=== PATIENT | male | born 1945 | race Caucasian/White ===

== ENCOUNTER 2019-11-10 11:24 | Emergency (ER) | payer MEDICARE, BC ==
[2019-11-10] MEDS ORDERED: Sodium Chloride 0.9% 2.5 ML Syringe FLUSH PRN ×2 (11:45→11:57)
[2019-11-10] MEDS ORDERED: Sodium Chloride 0.9% 10 ML Syringe FLUSH PRN ×2 (11:45→11:57)
--- NOTE | 2019-11-10 11:47 | EDM.PDOC ---
ED HPI GENERAL MEDICAL PROBLEM - General Chief Complaint: Neuro Symptoms/Deficits Stated Complaint: DIZZY Time Seen by Provider: 11/10/19 11:47 Source of Information: Reports: Patient History Limitations: Reports: No Limitations - History of Present Illness INITIAL COMMENTS - FREE TEXT/NARRATIVE: HISTORY AND PHYSICAL: History of present illness: Patient is a 74-year-old male who presents to the emergency room with complaints of dizziness after a syncopal event. He states he was in the garage around 8 AM this morning when he bent over to grab something off the ground and stood up to shot the garage door, he had a syncopal event resulting in hitting his right upper brow/right elbow and right fifth digit. He is unsure how long he had passed out. When he woke up on the ground he states he yelled out for his to help, they drove to [place] from [facility]. He states he has not eaten any breakfast yet today but prior to his syncopal event had felt well and had no health complaints or concerns. After the syncopal event he has some facial pain, right elbow pain and fifth digit pain where he has abrasions. He also complains of feeling unsteady on his feet and dizzy when he has to ambulate or he turns his head quickly. He does have a past medical history of coronary artery bypass with open heart surgery. Patient denies any fever, chills, headache, change in vision, syncope or near syncope. Denies any chest pain, back pain, shortness of breath or cough. Denies any abdominal pain, nausea, vomiting, diarrhea, constipation or dysuria. Has not noted any blood in urine or stool. Patient has been eating and drinking appropriately. Review of systems: As per history of present illness and below otherwise all systems reviewed and negative. Past medical history: As per history of present illness and as reviewed below otherwise noncontributory. Surgical history: As per history of present illness and as reviewed below otherwise noncontributo ry. Social history: See social history for further information Family history: As per history of present illness and as reviewed below otherwise noncontributory. Physical exam: General: Well-developed and well-nourished 74-year-old male. Alert and oriented. Nontoxic-appearing and in no acute distress. HEENT: Bruising and tenderness to left eyebrow, normocephalic, pupils equal and reactive bilaterally, negative for conjunctival pallor or scleral icterus, mucous membranes moist, TMs normal bilaterally, throat clear, neck supple, nontender, trachea midline. No drooling or trismus noted. No meningeal signs. No hot potato voice noted. Lungs: Clear to auscultation, breath sounds equal bilaterally, chest nontender. Heart: S1S2, bradycardic rate and rhythm without overt murmur Abdomen: Soft, nondistended, nontender. Negative for masses or hepatosplenomegaly. Negative for costovertebral tenderness. Pelvis: Stable nontender. C-spine/Back: No pinpoint vertebral tenderness upon palpation. No crepitus, step-offs or obvious deformities. Patient is ambulatory into the emergency room without difficulty or deficit. Able to rock back on heels and walk on toes. Denies any urinary or fecal incontinence. Denies any numbness, tingling or saddle paresthesia. No concerns of serious infection, fracture or cord compression, or cauda equina syndrome. Deep tendon reflexes brisk bilaterally. Skin: Abrasion and early bruising above the right eyebrow. Skin tear to right elbow. Abrasion to distal right fifth digit. Otherwise skin is intact, warm, dry. No lesions or rashes noted. Hematologic: No petechiae or purpra. Mucosa appropriate color and normal nail bed color and refill. Extremities: Moves all extremities per self without difficulty or deficits, negative for cords or calf pain. Patient elevation of the right elbow (see SKIN for details). Pain with palpation of the MIP fifth digit. Neurovascular unremarkable. Neuro: Awake, alert, oriented. Cranial nerves II through XII unremarkable. Cerebellum unremarkable. Motor and sensory unremarkable throughout. Exam nonfocal. Notes: 10/2019: Last month the patient had a nuclear stress test with Dr. 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 Left ventricular cavity is mildly enlarged. Borderline ejection fraction is noted. No definite findings of reversible ischemia. EKG shows a third-degree heart block with a rate of 35. At bedside his pulse will range from 25-40 bpm. At this time I involved Dr Miles in this case, he has also evaluated patient. Spoke with patient's , Inga about patient's need for transfer. We did speak with Dr. Isauro Oreilly at [facility] in [place], currently there acute beds are full. [facility], Dr Valero, development intern has accepted this patient. Dr Pearson, ED physician was made aware as well. Patient remains stable. Dopamine drip started and titrated. Lab work is unremarkable. Patient remains stable and asymptomatic. Awaiting flight crew for transfer. Diagnostics: CBC, CMP, UA, troponin, EKG, INR, BNP, 1 view chest, head CT, right elbow x-ray, right fifth digit x-ray Therapeutics: environmental monitoring technician, SL x 2, Dopamine drip Impression: Syncope Third degree heart block Plan: Transfer to [facility] via flight crew Definitive disposition and diagnosis as appropriate pending reevaluation and review of above. Onset: Today R elbow Pain Score (Numeric/FACES): 6 - Related Data Allergies Allergy/AdvReac Type Severity Reaction Status Date / Time No Known Allergies Allergy Verified 11/10/19 12:04 Home Meds: Home Meds Aspirin [Adult Low Dose Aspirin EC] 81 mg PO DAILY 08/25/16 [History] Ezetimibe [Zetia] 10 mg PO DAILY 08/25/16 [History] Fish Oil/[place]-3 Fatty Acids [Fish Oil 1,000 MG] 1 gm PO BID 08/25/16 [History] Glucosam/Chondr/Collagn/Hyalur [Glucosamine & Chondroitin Cap] 1 cap PO DAILY 08/25/16 [History] Metoprolol Tartrate 50 mg PO BEDTIME 08/25/16 [History] Nitroglycerin 0.4 mg PO ASDIRECTED PRN MDD 3 tabs 08/25/16 [History] Rosuvastatin Calcium 40 mg PO DAILY 08/25/16 [History] Past Medical History Other HEENT History: wears glasses Cardiovascular History: Reports: CAD, High Cholesterol, Hypertension, NM Respiratory History: Reports: None Gastrointestinal History: Reports: GERD Genitourinary History: Reports: Renal Calculus Musculoskeletal History: Reports: Fracture Other Musculoskeletal History: hx of fx left thumb Neurological History: Reports: None Psychiatric History: Reports: None Endocrine/Metabolic History: Reports: None Hematologic History: Reports: None Immunologic History: Reports: None Oncologic (Cancer) History: Reports: Basal Cell Carcinoma Other Oncologic History: left shoulder and back Dermatologic History: Reports: Other (See Below) Other Dermatologic History: multiple basal cell and pre-cancerous lesions removed - Past Surgical History Head Surgeries/Procedures: Reports: None HEENT Surgical History: Reports: None Cardiovascular Surgical History: Reports: Coronary Artery Bypass, Coronary Artery Stent Other Cardiovascular Surgeries/Procedures: hx of CABG with 6 vessels, hx of Angioplasty with 2 stents, denies current chest pain and SOB Respiratory Surgical History: Reports: None GI Surgical History: Reports: Appendectomy Male Surgical History: Reports: None Endocrine Surgical History: Reports: None Neurological Surgical History: Reports: None Musculoskeletal Surgical History: Reports: ORIF, Other (See Below) Other Musculoskeletal Surgeries/Procedures:: ORIF left thumb, Left Achillies Tendon repair Oncologic Surgical History: Reports: None Dermatological Surgical History: Reports: Skin Biopsy Social & Family History - Caffeine Use Caffeine Use: Reports: None ED ROS GENERAL - Review of Systems Review Of Systems: Comprehensive ROS is negative, except as noted in HPI. ED EXAM, NEURO - Physical Exam Exam: See Below (See dictation) Course - Vital Signs Last Recorded V/S: Last Vital Signs Temp 96.8 F L 11/10/19 12:25 Pulse 40 L 11/10/19 12:25 Resp 20 11/10/19 12:25 BP 142/47 H 11/10/19 12:25 Pulse Ox 97 11/10/19 12:25 Orthostatic Blood Pressure [ 167/66 Standing] Orthostatic Blood Pressure [ 172/73 Sitting] Orthostatic Blood Pressure [ 189/57 Supine] - Orders/Labs/Meds Orders: Active Orders 24 hr Category Date Time Status Cardiac Monitoring [RC] . DIRECTED Care 11/10/19 11:45 Active Communication Order [RC] STAT Care 11/10/19 11:57 Active EKG Documentation Completion [RC] STAT Care 11/10/19 11:44 Active Orthostatic Vital Signs [RC] ASDIRECTED Care 11/10/19 11:44 Active Chest 1V Frontal [CR] Stat Exams 11/10/19 11:44 Taken Elbow Min 3V Rt [CR] Stat Exams 11/10/19 11:44 Taken B-TYPE NATRIURETIC PEPTIDE,BNP [CHEM] Stat Lab 11/10/19 11:57 Received CORONAVIRUS COVID-19 RAPID [MOLEC] Stat Lab 11/10/19 12:48 Received DOPamine/Dextrose 5%-Water [DOPamine in D5W 400 MG/250 Med 11/10/19 12:00 Active ML] 400 mg in 250 ml IV TITRATE Sodium Chloride 0.9% [Saline Flush] Med 11/10/19 11:45 Active 10 ml FLUSH ASDIRECTED PRN Sodium Chloride 0.9% [Saline Flush] Med 11/10/19 11:57 Active 10 ml FLUSH ASDIRECTED PRN Sodium Chloride 0.9% [Saline Flush] Med 11/10/19 11:45 Active 2.5 ml FLUSH ASDIRECTED PRN Sodium Chloride 0.9% [Saline Flush] Med 11/10/19 11:57 Active 2.5 ml FLUSH ASDIRECTED PRN Saline Lock Insert [OM.PC] Stat Oth 11/10/19 11:45 Ordered Saline Lock Insert [OM.PC] Stat Ot 11/10/19 11:57 Ordered Medication Orders Dopamine HCl/Dextrose (Dopamine In D5w 400 Mg/250 Ml) 400 mg in 250 mls @ 16.159 mls/hr IV TITRATE LUCIO; Protocol Last Titration: 11/10/19 12:38 Dose: 10 mcg/kg/min, 32.319 mls/hr Documented by: Admin: 11/10/19 12:10 Dose: 5 mcg/kg/min, 16.159 mls/hr Documented by: SUDHIR Sodium Chloride (Saline Flush) 10 ml FLUSH ASDIRECTED PRN PRN Reason: Keep Vein Open Sodium Chloride (Saline Flush) 2.5 ml FLUSH ASDIRECTED PRN PRN Reason: Keep Vein Open Sodium Chloride (Saline Flush) 10 ml FLUSH ASDIRECTED PRN PRN Reason: Keep Vein Open Sodium Chloride (Saline Flush) 2.5 ml FLUSH ASDIRECTED PRN PRN Reason: Keep Vein Open Labs: Laboratory Tests 11/10/19 11/10/19 11/10/19 Range/Units 11:43 11:57 11:57 WBC 6.99 (4.0-11.0) K/uL RBC 5.61 (4.50-5.90) M/uL Hgb 16.8 (13.0-17.0) g/dL Hct 49.9 (38.0-50.0) % MCV 88.9 (80.0-98.0) fL MCH 29.9 (27.0-32.0) pg MCHC 33.7 (31.0-37.0) g/dL RDW Std Deviation 46.3 (28.0-62.0) fl RDW Coeff of Semaj 14 (11.0-15.0) % Plt Count 101 L (150-400) K/uL MPV 10.60 (7.40-12.00) fL Neut % (Auto) 73.0 (48.0-80.0) % Lymph % (Auto) 18.0 (16.0-40.0) % [place] % (Auto) 7.2 (0.0-15.0) % Eos % (Auto) 1.7 (0.0-7.0) % Baso % (Auto) 0.1 (0.0-1.5) % Neut # (Auto) 5.1 (1.4-5.7) K/uL Lymph # (Auto) 1.3 (0.6-2.4) K/uL [place] # (Auto) 0.5 (0.0-0.8) K/uL Eos # (Auto) 0.1 (0.0-0.7) K/uL Baso # (Auto) 0.0 (0.0-0.1) K/uL Nucleated RBC % 0.0 /100WBC Nucleated RBCs # 0 K/uL INR Sodium 139 (136-148) mmol/L Potassium 4.9 (3.5-5.1) mmol/L Chloride 107 (98-107) mmol/L Carbon Dioxide 27.0 (21.0-32.0) mmol/L BUN 16 (7.0-18.0) mg/dL Creatinine 1.2 (0.8-1.3) mg/dL Est Cr Clr Drug Dosing 59.26 mL/min Estimated GFR (MDRD) 59.5 ml/min Glucose 128 H (74-106) mg/dL POC Glucose 109 (60-110) mg/dL Calcium 9.7 (8.5-10.1) mg/dL Total Bilirubin 1.6 H (0.2-1.0) mg/dL AST 27 (15-37) IU/L ALT 41 (14-63) IU/L Alkaline Phosphatase 62 (46-116) U/L Troponin I < 0.050 (0.000-0.056) ng/mL Total Protein 7.0 (6.4-8.2) g/dL Albumin 4.0 (3.4-5.0) g/dL Globulin 3.0 (2.6-4.0) g/dL Albumin/Globulin Ratio 1.3 (0.9-1.6) Urine Color Urine Appearance Urine pH (5.0-8.0) Ur Specific [place] (1.001-1.035) Urine Protein (NEGATIVE) mg/dL Urine Glucose (UA) (NEGATIVE) mg/dL Urine Ketones (NEGATIVE) mg/dL Urine Occult Blood (NEGATIVE) Urine Nitrite (NEGATIVE) Urine Bilirubin (NEGATIVE) Urine Urobilinogen (<2.0) EU/dL Ur Leukocyte Esterase (NEGATIVE) 11/10/19 11/10/19 Range/Units 11:57 12:05 WBC (4.0-11.0) K/uL RBC (4.50-5.90) M/uL Hgb (13.0-17.0) g/dL Hct (38.0-50.0) % MCV (80.0-98.0) fL MCH (27.0-32.0) pg MCHC (31.0-37.0) g/dL RDW Std Deviation (28.0-62.0) fl RDW Coeff of Semaj (11.0-15.0) % Plt Count (150-400) K/uL MPV (7.40-12.00) fL Neut % (Auto) (48.0-80.0) % Lymph % (Auto) (16.0-40.0) % [place] % (Auto) (0.0-15.0) % Eos % (Auto) (0.0-7.0) % Baso % (Auto) (0.0-1.5) % Neut # (Auto) (1.4-5.7) K/uL Lymph # (Auto) (0.6-2.4) K/uL [place] # (Auto) (0.0-0.8) K/uL Eos # (Auto) (0.0-0.7) K/uL Baso # (Auto) (0.0-0.1) K/uL Nucleated RBC % /100WBC Nucleated RBCs # K/uL INR 1.03 Sodium (136-148) mmol/L Potassium (3.5-5.1) mmol/L Chloride (98-107) mmol/L Carbon Dioxide (21.0-32.0) mmol/L BUN (7.0-18.0) mg/dL Creatinine (0.8-1.3) mg/dL Est Cr Clr Drug Dosing mL/min Estimated GFR (MDRD) ml/min Glucose (74-106) mg/dL POC Glucose (60-110) mg/dL Calcium (8.5-10.1) mg/dL Total Bilirubin (0.2-1.0) mg/dL AST (15-37) IU/L ALT (14-63) IU/L Alkaline Phosphatase (46-116) U/L Troponin I (0.000-0.056) ng/mL Total Protein (6.4-8.2) g/dL Albumin (3.4-5.0) g/dL Globulin (2.6-4.0) g/dL Albumin/Globulin Ratio (0.9-1.6) Urine Color YELLOW Urine Appearance CLEAR Urine pH 6.0 (5.0-8.0) Ur Specific [place] 1.020 (1.001-1.035) Urine Protein NEGATIVE (NEGATIVE) mg/dL Urine Glucose (UA) NEGATIVE (NEGATIVE) mg/dL Urine Ketones NEGATIVE (NEGATIVE) mg/dL Urine Occult Blood NEGATIVE (NEGATIVE) Urine Nitrite NEGATIVE (NEGATIVE) Urine Bilirubin NEGATIVE (NEGATIVE) Urine Urobilinogen 0.2 (<2.0) EU/dL Ur Leukocyte Esterase NEGATIVE (NEGATIVE) Meds: Medications Generic Name Dose Route Start Last Admin Trade Name Freq PRN Reason Stop Dose Admin Dopamine HCl/Dextrose 400 mg in 250 mls @ 16.159 mls/hr 11/10/19 12:00 11/10/19 12:38 Dopamine In D5w 400 Mg/250 Ml IV 10 mcg/kg/min TITRATE LUCIO 32.319 mls/hr Titration Protocol 5 MCG/KG/MIN Sodium Chloride 10 ml 11/10/19 11:45 Saline Flush FLUSH ASDIRECTED PRN Keep Vein Open Sodium Chloride 2.5 ml 11/10/19 11:45 Saline Flush FLUSH ASDIRECTED PRN Keep Vein Open Sodium Chloride 10 ml 11/10/19 11:57 Saline Flush FLUSH ASDIRECTED PRN Keep Vein Open Sodium Chloride 2.5 ml 11/10/19 11:57 Saline Flush FLUSH ASDIRECTED PRN Keep Vein Open Discontinued Medications Generic Name Dose Route Start Last Admin Trade Name Yovanny PRN Reason Stop Dose Admin Dopamine HCl/Dextrose Confirm 11/10/19 12:05 11/10/19 12:16 Dopamine In D5w 400 Mg/250 Ml Administered 11/10/19 12:06 Not Given Dose 400 mg in 250 mls @ as directed .ROUTE .STK-MED ONE Departure - Departure Time of Disposition: 12:46 Disposition: DC/Tfer to Acute Hospital 02 Clinical Impression: Third degree heart block Syncope Qualifiers: Syncope type: unspecified Qualified Code(s): R55 - Syncope and collapse - Discharge Information Referrals: PCP,None [Primary Care Provider] - Forms: ED Department Discharge Sepsis Event Note (ED) - Focused Exam Vital Signs: Vital Signs Temp Pulse Resp BP Pulse Ox 11/10/19 12:25 96.8 F L 40 L 20 142/47 H 97 11/10/19 11:44 96.3 F L 36 L 20 177/63 H 98 - My Orders Last 24 Hours: My Active Orders 11/10/19 11:44 EKG Documentation Completion [RC] STAT Orthostatic Vital Signs [RC] ASDIRECTED Chest 1V Frontal [CR] Stat Elbow Min 3V Rt [CR] Stat 11/10/19 11:45 Cardiac Monitoring [RC] . DIRECTED Sodium Chloride 0.9% [Saline Flush] 10 ml FLUSH ASDIRECTED PRN Sodium Chloride 0.9% [Saline Flush] 2.5 ml FLUSH ASDIRECTED PRN Saline Lock Insert [OM.PC] Stat 11/10/19 11:57 Communication Order [RC] STAT Sodium Chloride 0.9% [Saline Flush] 10 ml FLUSH ASDIRECTED PRN Sodium Chloride 0.9% [Saline Flush] 2.5 ml FLUSH ASDIRECTED PRN Saline Lock Insert [OM.PC] Stat 11/10/19 12:00 DOPamine/Dextrose 5%-Water [DOPamine in D5W 400 MG/250 ML] 400 mg in 250 ml IV TITRATE 11/10/19 12:48 CORONAVIRUS COVID-19 RAPID [MOLEC] Stat - Assessment/Plan Last 24 Hours: My Active Orders 11/10/19 11:44 EKG Documentation Completion [RC] STAT Orthostatic Vital Signs [RC] ASDIRECTED Chest 1V Frontal [CR] Stat Elbow Min 3V Rt [CR] Stat 11/10/19 11:45 Cardiac Monitoring [RC] . DIRECTED Sodium Chloride 0.9% [Saline Flush] 10 ml FLUSH ASDIRECTED PRN Sodium Chloride 0.9% [Saline Flush] 2.5 ml FLUSH ASDIRECTED PRN Saline Lock Insert [OM.PC] Stat 11/10/19 11:57 Communication Order [RC] STAT Sodium Chloride 0.9% [Saline Flush] 10 ml FLUSH ASDIRECTED PRN Sodium Chloride 0.9% [Saline Flush] 2.5 ml FLUSH ASDIRECTED PRN Saline Lock Insert [OM.PC] Stat 11/10/19 12:00 DOPamine/Dextrose 5%-Water [DOPamine in D5W 400 MG/250 ML] 400 mg in 250 ml IV TITRATE 11/10/19 12:48 CORONAVIRUS COVID-19 RAPID [MOLEC] Stat
[2019-11-10] MEDS ORDERED: DOPamine/Dextrose 5%-Water 400 MG/250 ML BAG IV SCH (12:00)
[2019-11-10] MEDS ORDERED: DOPamine/Dextrose 5%-Water 400 MG/250 ML BAG ONE (12:05)
--- NOTE | 2019-11-10 12:05 | PCM.SN.2 ---
- Free Text/Narrative Note: Patient was presented to be by the mid-level provider, who sees patients independently as a licensed independent practitioner by [facility] and [facility] law. Up until the point that my assistance was requested, the mid-level provider has been solely, exclusively, and independently caring for this patient and they are responsible for all aspects of care including performing the history and physical, formulating medical decision making, administering medications, and ordering and evaluating testing. I have personally and independently seen and evaluated the patient at bedside and, if available, have spoken with the with the family. I agree with the history, physical, medical decision making, and plan of treatment as documented by the mid-level provider. I have performed the medical decision making for this patient, including assessing the results of all diagnostic testing and I have instructed the mid-level provider to document the results and carry through with the treatment plan that I deemed appropriate. The final completed note is the responsibility of the mid-level provider. If needed, any other comments, a focused physical examination, or my own medical decision making are documented below. In brief, 74-year-old male with a past medical history of CAD status post CABG x6, hyperlipidemia presenting with syncope. Noted to be markedly bradycardic and in third-degree AV block on arrival. Hypertensive with blood pressure 170 systolic, extremities warm and well-perfused, no chest pain or shortness of breath so does not meet inclusion criteria for transcutaneous pacing at this moment. IV access established and labs were sent. Twelve-lead EKG shows no acute ischemia. Given full dose aspirin and started on a dopamine infusion. Therapy pads were placed. Labs reassuring, troponin negative, electrolytes reassuring, normal cell lines. Patient will need to be emergently transferred for emergent pacemaker placement. We initially contacted [facility] in [place], who has no capacity to admit the patient. We were able to secure admission at [facility] in [place]. I spoke with the cap machine operator Dr. Valero and the emergency physician Dr. Vaughn who agreed to accept the transfer. We will plan to transfer by fixed wing aircraft. Patient remained in stable condition and did not require any transcutaneous pacing although we did slightly up titrate the dopamine infusion rate. He was transferred to the aeromedical crew in good condition. Critical care time is exclusive of billable procedures and the time to perform these procedures. Critical care time was used to prevent vital system organ failure and deterioration. Critical care time includes bedside management and high-complexity decision making requiring my highest level of mental preparedness and attention. This includes reviewing the patient's chart and prior medical records, ordering and reviewing interpreting laboratory studies and imaging results, interpretation of vital signs and EKG, pulse oximetry, and discussion with the admitting team along with EMS and nursing staff. 30 minutes of critical care. Third-degree AV block requiring IV vasopressor infusion after syncope. Emergent transfer to Campaign [facility] for emergent pacemaker placement. Transfer by aeromedical crew. Required serial evaluations of heart rate, blood pressure, and hemodynamics. Discussions with patient, family, and admitting emergency physician and cap machine operator.
[2019-11-10 12:26] LABS: BLOOD UREA NITROGEN,BUN 16 mg/dL (7.0-18.0); CHLORIDE,CL 107 mmol/L (98-107); GLUCOSE RANDOM 128 mg/dL (74-106); POTASSIUM,K 4.9 mmol/L (3.5-5.1); SODIUM,NA 139 mmol/L (136-148)
[2019-11-10 12:31] VITALS: BP 142/47; PULSE 40
--- NOTE | 2019-11-10 12:52 | CR ---
INDICATION: Syncope TECHNIQUE: Portable AP radiograph the chest COMPARISON: None FINDINGS: Cardiomediastinal silhouette: Enlarged cardiac silhouette. Median sternotomy wires and changes of CABG. Lungs and pleural space: Defibrillator pad projects over the right hemithorax, obscuring visualization. However, no focal consolidation identified. No findings to suggest pulmonary edema. There is mild elevation of the right hemidiaphragm. No pleural effusions or pneumothorax. Bones and soft tissues: No acute findings. IMPRESSION: No acute pulmonary abnormality identified. Dictated by Seema Mukherjee MD @ 11/10/2019 12:51:42 PM Dictated by: Seema Mukherjee MD @ 11/10/2019 12:51:48 (Electronically Signed)
--- NOTE | 2019-11-10 12:55 | CR ---
INDICATION: Fall, hit elbow. TECHNIQUE: Right elbow three views COMPARISON: None FINDINGS AND IMPRESSION: Normal alignment. No elbow joint effusion. No acute fracture. No significant soft tissue swelling. There are degenerative changes at the humeroulnar articulation with subchondral sclerosis and joint space narrowing. Dictated by Seema Mukherjee MD @ 11/10/2019 12:54:32 PM Dictated by: Seema Mukherjee MD @ 11/10/2019 12:54:38 (Electronically Signed)
== END 2019-11-10 13:10 ==
LOC: MW.ED 11:24
DX: I44.2 Atrioventricular block, complete (principal); R55 Syncope and collapse; I10 Essential (primary) hypertension; I25.2 Old myocardial infarction; I25.10 Atherosclerotic heart disease of native coronary artery without angina pectoris; E78.00 Pure hypercholesterolemia, unspecified; Z95.5 Presence of coronary angioplasty implant and graft; Z79.82 Long term (current) use of aspirin; Z79.899 Other long term (current) drug therapy
CPT/HCPCS: 36415; 71045; 73080; 80053; 81003; 82962; 83880; 84484; 85025; 85610; 93005; 96365; 99285; J1265; U0002